=== PATIENT | female | born 1980 | race American Indian/Alaskan Native ===

== ENCOUNTER 2021-06-15 06:50 | Day surgery (SDC) | payer OTHER ==
[~2021-06-15 06:50] MED LIST: PEPCID AC20 MG PO
== END 2021-06-15 17:55 | disposition home or self-care (01) ==
LOC: CIR.AMB 06:50
PROVIDERS: ATTEND Surgery
DX: D05.01 Lobular carcinoma in situ of right breast (principal); D05.11 Intraductal carcinoma in situ of right breast; D24.2 Benign neoplasm of left breast; Z90.13 Acquired absence of bilateral breasts and nipples; N62 Hypertrophy of breast; Z20.822 Contact with and (suspected) exposure to COVID-19
CPT/HCPCS: 19357; 19303; 38525; 38792; C1789

== ENCOUNTER 2021-12-25 08:00 | Outpatient (CLI) | payer OTHER ==
[~2021-12-25] VITALS: Ht 157.5 cm; Wt 61.2 kg
[2022-03-05] MEDS ORDERED: ZOLADEX3.6 MG (10:32)
[2022-03-05] MEDS ORDERED: AROMASIN25 MG PO (10:33)
== END 2021-12-25 08:30 | disposition home or self-care (01) ==
LOC: EKG 08:00 → ADM 15:15 → CIR.AMB 12-28 15:15 → EDSTATUS 12-28 15:15
PROVIDERS: ATTEND Plastic Surgery
DX: I10 Essential (primary) hypertension (principal)

== ENCOUNTER 2022-03-08 05:45 | Day surgery (SDC) | payer OTHER ==
[~2022-03-08 05:45] MED LIST changes: +AROMASIN25 MG PO; +ZOLADEX3.6 MG
== END 2022-03-08 12:50 | disposition home or self-care (01) ==
LOC: CIR.AMB 05:45
PROVIDERS: ATTEND Plastic Surgery
DX: C50.211 Malignant neoplasm of upper-inner quadrant of right female breast (principal); Z20.822 Contact with and (suspected) exposure to COVID-19; Z90.13 Acquired absence of bilateral breasts and nipples; Z42.1 Encounter for breast reconstruction following mastectomy; Z88.2 Allergy status to sulfonamides